=== PATIENT | female | born 1950 | race African-American/Black ===

== ENCOUNTER 2018-05-28 08:39 | Emergency (ER) | payer MEDICARE, OTHER ==
[~2018-05-28] VITALS: Ht 157.5 cm; Wt 68.0 kg
--- OUTSIDE RECORDS SUMMARY | 2018-05-28 08:41 | XMS REPORT ---
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 Allergies, Adverse Reactions, Alerts This patient has no known allergies or adverse reactions. Medications This patient has no known medications. Results Test Description Test Time Test Comments Text Results Atomic Results Result Comments RAD, KNEE, COMPLETE (4 VIEWS), LEFT 2017-07-07 10:09:00 Reason for exam:->KNEE PAINpatient c/o pain below the left knee on and off onset abt.5 weeks-had leg ultrasound 06/25/2017(negative per patient)Should this be performed at the bedside?->No FINAL REPORT Left knee. HISTORY: Knee pain. COMPARISON STUDY: None available. FINDINGS: Four views of the left knee demonstrate no evidence of fracture, malalignment or effusion. Signed: Tomas Palafox MDReport Verified Date/Time: 07/07/2017 10:09:16 Reading Location: [facility] B1 C013Y CT Body Reading Room
--- OUTSIDE RECORDS SUMMARY | 2018-05-28 08:41 | XMS REPORT | Clinical Summary ---
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 Active cetirizine (ZYRTEC) 10 MG 1 tablet 0 tablet daily . 8 Active fluticasone (FLONASE) 50 2 sprays 0 mcg/actuation nasal spray daily . 8 Active levothyroxine (SYNTHROID, 1 tablet 0 LEVOTHROID) 25 MCG tablet daily . 8 Active ranitidine (ZANTAC) 150 1 tablet 2 0 06/03/201 MG tablet (two) times 8 daily . Active aspirin 81 MG EC tablet Take 81 mg by 0 mouth daily. Active coenzyme Q10 (CO Q-10) 10 Take 10 mg by 0 mg capsule mouth daily. Active garlic 1,000 mg Cap Take by 0 mouth. Active magnesium 30 mg tablet Take 30 mg by 0 mouth 2 (two) times daily. Active vitamin A 37034 UNIT Take 10,000 0 capsule Units by mouth daily. Active Problems Not on file Encounters Care Team Description Date Type Specialty Berny Espinoza MD Acute pain of left knee (Primary Dx); Swelling of left knee joint 07/07/2017 Emergency Emergency Medicine after 05/27/2017 Social History Date Tobacco Use Types Packs/Day Years Used Never Smoker Smokeless Tobacco: Never Used Sex Assigned at Date Recorded Not on file Industry Job Start Date Occupation Not on file Not on file Not on file Travel End Travel History Travel Start No recent travel history available. Last Filed Vital Signs Time Taken Vital Sign Reading 07/07/2017 9:26 AM CDT Blood Pressure 156/82 07/07/2017 9:26 AM CDT Pulse 81 07/07/2017 9:26 AM CDT Temperature 36.7 C (98.1 F) 07/07/2017 9:26 AM CDT Respiratory Rate 20 07/07/2017 9:26 AM CDT Oxygen Saturation 96% - Inhaled Oxygen - Concentration 07/07/2017 9:26 AM CDT Weight 69.4 kg (153 lb) 07/07/2017 9:26 AM CDT Height 157.5 cm (5' 2") 07/07/2017 9:26 AM CDT Body Mass Index 27.98 Plan of Treatment Not on file Procedures Comments Procedure Name Priority Date/Time Associated Diagnosis XR KNEE LEFT COMPLETE (4 STAT 07/07/2017 VIEWS) 10:03 AM CDT after 05/27/2017 Results * XR knee complete 4 views left (07/07/2017 10:03 AM CDT) Narrative Performed At FINAL REPORT GE RIS Left knee. HISTORY: Knee pain. COMPARISON STUDY: None available. FINDINGS: Four views of the left knee demonstrate no evidence of fracture, malalignment or effusion. Signed: Franklin Dowd MD Report Verified Date/Time:07/07/2017 10:09:16 Reading Location: [facility] C[address] CT Body Reading Room Procedure Note Interface, External Ris In - 07/07/2017 10:11 AM CDT FINAL REPORT Left knee. HISTORY: Knee pain. COMPARISON STUDY: None available. FINDINGS: Four views of the left knee demonstrate no evidence of fracture, malalignment or effusion. 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
[2018-05-28] MEDS ORDERED: SODIUM CHLORIDE 0.9% 1000ML 1,000 ML IV SCH (09:00)
--- NOTE | 2018-05-28 09:56 | Diagnostic Imaging Report ---
Exam: Head CT without contrast History: Headache, confusion Comparison studies: None Technique: Axial images were obtained from the skull base to the vertex. Coronal and sagittal images reconstructed from the axial data. Dose modulation, iterative reconstruction, and/or weight based adjustment of the mA/kV was utilized to reduce the radiation dose to as low as reasonably achievable. Radiation dose: Total DLP: 848 mGy*cm. Estimated effective dose: DLP x 0.015 Intravenous contrast: None Findings: Scalp: No abnormalities. Bones: No fractures, blastic or lytic lesions. Brain sulci: Appropriate for age. Ventricles: Normal in size and configuration. No hydrocephalus. Extra-axial spaces: No masses, no fluid collection. Parenchyma: Hypodensity in the anterior limb of the right internal capsule may reflect age-indeterminate lacunar infarct. Ill-defined hypodensities in the supratentorial white matter are nonspecific but most compatible with chronic microvascular ischemic changes. No mass, acute hemorrhage or acute or chronic cortical infarcts. Sellar/suprasellar region: No abnormalities. Craniocervical junction: Patent foramen magnum. No Chiari one malformation. Incidental findings: Atherosclerotic calcifications in the carotid siphons. Scattered nonspecific inflammatory mucosal thickening in the paranasal sinuses. IMPRESSION: 1. No mass, acute hemorrhage or acute cortical infarct. 2. Chronic microvascular ischemic changes with age-indeterminate nonhemorrhagic lacunar infarct in the anterior limb of the right internal capsule. Signed by: Dr. Raji Barillas M.D. on 05/28/2018 9:53 AM
[2018-05-28 10:24] VITALS: BP 152/79
== END 2018-05-28 10:27 | disposition home or self-care (01) ==
LOC: FSED 08:39
DX: G45.9 Transient cerebral ischemic attack, unspecified (principal); I10 Essential (primary) hypertension; J30.2 Other seasonal allergic rhinitis; D47.3 Essential (hemorrhagic) thrombocythemia
CPT/HCPCS: 70450; 80053; 81025; 84484; 85025; 93005; 99284; J7030